=== PATIENT | male | born 1950 | race Caucasian/White ===

== ENCOUNTER 2017-12-02 10:48 | Day surgery (SDC) | payer OTHER ==
[~2017-12-02] VITALS: Ht 162.6 cm; Wt 74.8 kg
[~2017-12-02 10:48] MED LIST: ALBU.083IS IH; ALBU3IS INH; ALBU90OI6 INH; ALBU90OI61 INH; ALLO300 PO; ALPR.5 PO; ASPI81EC PO; BENZ100A PO; BISA10S PR; BISA5EC PO; BUDE.25 NEB; CALCAVITD PO; CALCAVITDA PO; CARV6.25 PO; CHOL10002; COLCHICINE0.6 MG PO; CYAN100; DIAZ10 PO; DILT240 PO; DOCU100 PO; FENT50TP TOP; FLUT44OIA IH; GABA100 PO; GUAI600T33 PO; HYDCOR10; HYDCOR10 PO; HYDMOR4; HYDMOR4 PO; HYDROMORPHO; INFUMORPH; INFUMORPH IM; IPRA.03NI; IPRAIS NEB; LANS30EC PO; LAVAP17G PO; LEVA1.25 IH; LORA10ER PO; MAGGLU250 PO; METO50 PO; MONT10T PO; MORPHINE PUMP; MORPHINE SULFATE IJ; MULVITB PO; MULVITMINE PO; MULVITMINF PO; NEBI5 PO; OLME20 PO; PANT40 PO; PERI4 PO; POLY17UD PO; POTA10T PO; PRAV40 PO; PRED20 PO; PRED5 PO; PRIM50 PO; Perforomis20 MCG/2 M IH; ROFL500T PO; SENN187 PO; SPIR25 PO; STOOL SOFTENER; THEO300ERA PO; THEO300ERB PO; TIOT18 IH; VERA120ERB PO; VERA80 PO; VITB100 PO; XARELTO20 MG; [UNRECOGNIZED DRUG - OTHER] INH
== END 2017-12-02 13:55 | disposition home or self-care (01) ==
LOC: ORSCSDS 10:48
PROVIDERS: Internal Medicine Gastroenterology
PROC: 0DJD8ZZ Inspection of Lower Intestinal Tract, Via Natural or Artificial Opening Endoscopic (ICD-10-PCS; principal; 2017-12-02 12:00)
DX: Z12.11 Encounter for screening for malignant neoplasm of colon (principal); K64.4 Residual hemorrhoidal skin tags; K57.30 Diverticulosis of large intestine without perforation or abscess without bleeding; G47.33 Obstructive sleep apnea (adult) (pediatric); Z87.891 Personal history of nicotine dependence; Z79.899 Other long term (current) drug therapy; Z86.718 Personal history of other venous thrombosis and embolism; Z86.711 Personal history of pulmonary embolism
CPT/HCPCS: J7120

== ENCOUNTER → 2018-11-29 | Outpatient (CLI) | payer OTHER | END | disposition home or self-care (01) | LOC: LAB 11:08 → LAB SHORT 11:08 | DX: N18.3 Chronic kidney disease, stage 3 (moderate) (principal); D63.1 Anemia in chronic kidney disease; R19.7 Diarrhea, unspecified; N40.1 Benign prostatic hyperplasia with lower urinary tract symptoms | CPT/HCPCS: 87493 ==

== ENCOUNTER → 2019-03-19 | Outpatient (CLI) | payer OTHER | END | disposition home or self-care (01) | LOC: LAB SHORT 09:55 → PLD 09:55 | DX: D48.5 Neoplasm of uncertain behavior of skin (principal) | CPT/HCPCS: 88305 ==

== ENCOUNTER 2019-11-02 08:02 | Day surgery (SDC) | payer OTHER ==
[~2019-11-02] VITALS: Ht 162.6 cm; Wt 80.9 kg
[~2019-11-02 08:02] MED LIST changes: +ALBU2.5V5 INH; +ALBU90OI INH; +ALLO100 PO; +AZIT500 PO; +Budesonide0.5 MG/2 M INH; +CLEARLAX PO; +COLACE100 MG PO; +Cortef5 MG PO; +FURO40 PO; +LONHALA MA25 MCG/11 INH; +MINIPRESS2 MG PO; +PULMICORT0.5 MG/2 M INH; +Perforomis20 MCG/2 M INH; +XARELTO20 MG PO
[2019-11-02] MEDS ORDERED: NAC600 MG (08:57)
--- NOTE | 2019-11-02 11:09 | NUR ---
11/02/19 1109 Lucia Dumont PT INSTRUCTED TO RESUME XARELTO TODAY, CONTINUE PANTOPRAZOLE, STOP NSAIDS, TAKE CHEWABLE ASPIRIN, AND OFFICE WILL SEND PRESCRIPTION OF LIQUID FORM OF POTASSIUM
== END 2019-11-02 11:07 | disposition home or self-care (01) ==
LOC: ORSCSDS 08:02
PROVIDERS: Internal Medicine Gastroenterology
PROC: 0W3P8ZZ Control Bleeding in Gastrointestinal Tract, Via Natural or Artificial Opening Endoscopic (ICD-10-PCS; principal; 2019-11-02 09:15)
PROC: 0DB78ZX Excision of Stomach, Pylorus, Via Natural or Artificial Opening Endoscopic, Diagnostic (ICD-10-PCS; principal; 2019-11-02 09:15)
DX: R10.9 Unspecified abdominal pain (principal); K31.89 Other diseases of stomach and duodenum; K25.4 Chronic or unspecified gastric ulcer with hemorrhage; R19.4 Change in bowel habit; F32.9 Major depressive disorder, single episode, unspecified; I12.9 Hypertensive chronic kidney disease with stage 1 through stage 4 chronic kidney disease, or unspecified chronic kidney disease; N18.3 Chronic kidney disease, stage 3 (moderate); D50.9 Iron deficiency anemia, unspecified; G47.33 Obstructive sleep apnea (adult) (pediatric); D64.9 Anemia, unspecified; E78.5 Hyperlipidemia, unspecified; J44.9 Chronic obstructive pulmonary disease, unspecified; Z99.81 Dependence on supplemental oxygen; Z87.891 Personal history of nicotine dependence; Z79.01 Long term (current) use of anticoagulants; Z79.899 Other long term (current) drug therapy
CPT/HCPCS: 88305; 88341; 88342; J2704

== ENCOUNTER → 2019-11-14 | Outpatient (CLI) | payer OTHER ==
[~2019-11-14] MED LIST changes: +NAC600 MG; +TAMS.4ER
== END | disposition home or self-care (01) ==
LOC: LAB SHORT 15:05 → PLD 15:05
DX: D48.5 Neoplasm of uncertain behavior of skin (principal); J44.9 Chronic obstructive pulmonary disease, unspecified
CPT/HCPCS: 88305

== ENCOUNTER 2019-11-23 10:45 | Day surgery (SDC) | payer OTHER ==
[~2019-11-23] VITALS: Ht 162.6 cm; Wt 81.8 kg
[~2019-11-23 10:45] MED LIST changes: -TAMS.4ER
[2019-11-23] MEDS ORDERED: TAMS.4ER (11:28)
== END 2019-11-23 12:55 | disposition home or self-care (01) ==
LOC: ORSCSDS 10:45
PROVIDERS: Internal Medicine Gastroenterology
PROC: 0D758ZZ Dilation of Esophagus, Via Natural or Artificial Opening Endoscopic (ICD-10-PCS; principal; 2019-11-23 12:00)
DX: R10.13 Epigastric pain (principal); Z87.11 Personal history of peptic ulcer disease; K31.9 Disease of stomach and duodenum, unspecified; D50.9 Iron deficiency anemia, unspecified; J44.9 Chronic obstructive pulmonary disease, unspecified; J45.909 Unspecified asthma, uncomplicated; G47.33 Obstructive sleep apnea (adult) (pediatric); Z79.899 Other long term (current) drug therapy; Z87.891 Personal history of nicotine dependence
CPT/HCPCS: J2250; J2704; J7030

== ENCOUNTER → 2019-12-03 | Outpatient (CLI) | payer OTHER ==
[~2019-12-03] MED LIST changes: +TAMS.4ER
== END | disposition home or self-care (01) ==
LOC: LAB SHORT 08:50 → PLD 08:50
DX: C44.319 Basal cell carcinoma of skin of other parts of face (principal); L72.9 Follicular cyst of the skin and subcutaneous tissue, unspecified
CPT/HCPCS: 88304; 88305

== ENCOUNTER 2020-08-03 19:34 | Emergency (ER) | payer OTHER ==
[~2020-08-03] VITALS: Ht 162.6 cm; Wt 81.7 kg
[2020-08-03 20:43] LABS: BASOPHILS ABSOLUTE AUTO 0.07 K/mm3 (0.00-0.23); BASOPHILS PERCENT AUTO 1 % (0-2); EOSINOPHILS ABSOLUTE AUTO 0.33 K/mm3 (0.00-0.68); EOSINOPHILS PERCENT AUTO 3 % (0-6); Hematocrit 33.5 % (37.0-53.0); Hemoglobin 10.1 g/dL (13.5-17.5); IMMATURE GRAN ABSOLUTE AUTO 0.08 K/mm3 (0.00-0.10); IMMATURE GRAN PERCENT AUTO 1 % (0-1); LYMPHOCYTES ABSOLUTE AUTO 0.91 K/mm3 (0.84-5.20); LYMPHOCYTES PERCENT AUTO 9 % (21-46); MONOCYTES ABSOLUTE AUTO 0.69 K/mm3 (0.16-1.47); MONOCYTES PERCENT AUTO 7 % (4-13); Mean Corpuscular HGB 27.7 pg (26.0-34.0); Mean Corpuscular HGB Conc 30.1 g/dL (31.5-36.5); Mean Corpuscular Volume 92 fL (80-100); Mean Platelet Volume 9.2 fL (9.1-12.4); NEUTROPHILS PERCENT AUTO 81 % (41-73); Platelet Count 202 K/mm3 (150-400); RDW Standard Deviation 54.5 fL (35.1-46.3); Red Blood Cell Count 3.65 M/mm3 (4.30-5.90); White Blood Cell Count 10.68 K/mm3 (4.00-11.30)
[2020-08-03 20:57] LABS: International Normalized Ratio 1.26; Prothrombin Time Results 13.3 Sec (9.7-11.5)
[2020-08-03 20:58] LABS: Albumin, Blood 3.4 g/dL (3.4-5.0); Albumin/Globulin Ratio 1.1 (0.8-1.8); Bilirubin, Total 0.2 mg/dL (0.1-1.0); Bun/Creatinine Ratio 19.9 (12.0-20.0); Calcium, Blood 8.7 mg/dL (8.5-10.1); Creatinine, Blood 1.56 mg/dL (0.60-1.20); Potassium, Blood 4.4 mmol/L (3.5-5.5); Total Protein, Blood 6.4 g/dL (6.4-8.2)
[2020-08-03 23:21] LABS: Hematocrit 33.7 % (37.0-53.0); Hemoglobin 10.2 g/dL (13.5-17.5)
[2020-08-03] MEDS ORDERED: KEFLEX500 MG PO (23:35)
== END 2020-08-03 23:40 | disposition home or self-care (01) ==
LOC: ER 19:34
PROVIDERS: Emergency Medicine
DX: R04.0 Epistaxis (principal); D64.9 Anemia, unspecified; Z79.01 Long term (current) use of anticoagulants; Z79.51 Long term (current) use of inhaled steroids; Z79.899 Other long term (current) drug therapy
CPT/HCPCS: 30905; 36415; 71045; 80053; 85014; 85018; 85025; 85610; 86850; 86900; 86901; 99283-25; A9270-GY